=== PATIENT | female | born 1990 | race Caucasian/White ===

== ENCOUNTER 2020-09-10 17:47 | Emergency (ER) | payer SELFPAY ==
[~2020-09-10] VITALS: Ht 160 cm; Wt 84.0 kg
[2020-09-10 21:04] VITALS: BP 118/76
== END 2020-09-10 21:08 | disposition home or self-care (01) ==
LOC: ER 17:47
DX: H92.01 Otalgia, right ear (principal); Z90.49 Acquired absence of other specified parts of digestive tract
CPT/HCPCS: 99281